=== PATIENT | female | born 1965 | race Caucasian/White ===

== ENCOUNTER → 2016-08-27 | Outpatient (REF) | payer BC | LOC: M SFHCWAGY 13:19 | PROVIDERS: ATTEND Nurse Practitioner Women's Health | DX: Z12.4 Encounter for screening for malignant neoplasm of cervix (principal) ==

== ENCOUNTER → 2016-08-27 | Outpatient (CLI) | payer BC ==
--- NOTE | 2016-08-27 15:30 | REPMRS ---
Patient History The patient states she had a clinical breast exam in 08/2016. Patient is postmenopausal. Family history of breast cancer in paternal cousin. Took estrogen for 1 month. Digital Woman Screen Mammo: August 27, 2016 - Exam #: [id number] Bilateral CC and MLO view(s) were taken. Technologist: Maricruz Williamson Technologist Prior study comparison: August 28, 2015, digital woman screen mammo performed at [facility]. August 24, 2014, digital woman screen mammo performed at [facility]. August 23, 2013, digital woman screen mammo performed at [facility]. FINDINGS: The breast tissue is almost entirely fat. There has been no change in the appearance of the mammogram from the prior studies. There is no interval development of dominant mass, architectural distortion, or clustered microcalcification typical of malignancy. ASSESSMENT: BI-RADS/ACR category 1 mammogram. Negative. Recommendation Routine screening mammogram of both breasts in 1 year (for women over age 40). This mammogram was interpreted with the aid of an FDA-approved computer-aided dectection system. Electronically Signed By: Daniel Humphrey MD 08/27/16 [id number]
== END ==
LOC: M WHC 12:40
PROVIDERS: ATTEND Nurse Practitioner Women's Health
DX: Z12.31 Encounter for screening mammogram for malignant neoplasm of breast (principal)

== ENCOUNTER → 2016-09-27 | Outpatient (REF) | payer BC | LOC: M LAB REF 10:27 | PROVIDERS: ATTEND Physician Assistant | DX: N39.0 Urinary tract infection, site not specified (principal) ==

== ENCOUNTER → 2016-10-10 | Outpatient (CLI) | payer BC ==
--- NOTE | 2016-10-10 14:29 | REP ---
PELVIC ULTRASOUND: Real-time sonographic evaluation of the pelvis performed utilizing transabdominal and endovaginal technique. Comparison 12/25/2011. Bladder measures 9.1 x 9.1 x 8.6 cm. Uterus measures 9.3 x 2.7 x 6.3 cm. Endometrial thickness is 6 mm. There is no endometrial fluid collection. The ovaries are normal in size and echotexture, right ovary measuring 1.6 x 1.0 x 1.5 cm and left ovary 1.6 x 1.3 x 1.9 cm. There is no adnexal mass or free fluid. Blood flow is seen in the ovaries with duplex Doppler evaluation, with no torsion. Small nabothian cyst is seen in the region of the cervix. IMPRESSION: Essentially negative pelvic ultrasound.
== END ==
LOC: M WHC 10:12
PROVIDERS: ATTEND Nurse Practitioner Women's Health
DX: R10.2 Pelvic and perineal pain (principal)

== ENCOUNTER → 2017-07-17 | Outpatient (REF) | payer BC ==
[2017-07-17 19:47] LABS: APPEARANCE, URINE CLEAR (CLEAR); BACTERIA, URINE AUTO NEGATIVE (NEGATIVE); BILIRUBIN, URINE AUTO NEGATIVE (NEGATIVE); BLOOD, URINE BLOOD NEGATIVE (NEGATIVE); COLOR, URINE STRAW (YELLOW); GLUCOSE, URINE (UA) AUTO NEGATIVE (NEGATIVE); KETONE, URINE AUTO NEGATIVE (NEGATIVE); LEUKOCYTE ESTERASE, URINE AUTO NEGATIVE (NEGATIVE); NITRITE, URINE AUTO NEGATIVE (NEGATIVE); PROTEIN, URINE AUTO NEGATIVE (NEGATIVE); RBC, URINE AUTO 0 /HPF (0-3); SQUAMOUS EPITHELIAL CELL UR AU 0 /HPF (0-6); UROBILINOGEN, URINE AUTO 0.2 mg/dL (0.0-2.0); WBC, URINE AUTO 0 /HPF (0-3)
== END ==
LOC: M SFHCWAGY 16:08
DX: B37.3 Candidiasis of vulva and vagina (principal)
CPT/HCPCS: 81001

== ENCOUNTER → 2017-08-27 | Outpatient (CLI) | payer BC | LOC: M WHC 12:46 | DX: Z12.31 Encounter for screening mammogram for malignant neoplasm of breast (principal) | CPT/HCPCS: 77067 ==

== ENCOUNTER → 2017-08-27 | Outpatient (REF) | payer BC | LOC: M SFHCWAGY 13:20 | DX: Z12.4 Encounter for screening for malignant neoplasm of cervix (principal); Z12.31 Encounter for screening mammogram for malignant neoplasm of breast ==

== ENCOUNTER → 2018-01-12 | Outpatient (CLI) | payer BC | LOC: M SLEEP HO 13:59 | DX: G47.33 Obstructive sleep apnea (adult) (pediatric) (principal) | CPT/HCPCS: G0399 ==

== ENCOUNTER 2018-02-16 18:35 | Emergency (ER) | payer BC ==
[2018-02-16] MEDS: KETOROLAC 60 MG/2 ML VIAL (J1885) IM (19:09)
[2018-02-16] MEDS: CYCLOBENZAPRINE 10 MG TAB PO (19:09)
== END 2018-02-16 19:50 | disposition home or self-care (01) ==
LOC: M ED 18:35
DX: M54.9 Dorsalgia, unspecified (principal); M62.830 Muscle spasm of back; I10 Essential (primary) hypertension; M19.90 Unspecified osteoarthritis, unspecified site; M51.9 Unspecified thoracic, thoracolumbar and lumbosacral intervertebral disc disorder; Z79.899 Other long term (current) drug therapy
CPT/HCPCS: J1885

== ENCOUNTER 2018-05-05 08:21 | Day surgery (SDC) | payer BC ==
[~2018-05-05 08:21] MED LIST: LIDOCAINE 2% INJ 100 MG/5 ML SDV (FOR ANES.) As Ordered; PROPOFOL 200 MG/20 ML VIAL As Ordered
[2018-05-05] MEDS: NS 1,000 ML IV ×2 (08:31→08:32)
== END 2018-05-05 09:46 | disposition home or self-care (01) ==
LOC: M OPP 08:21
DX: Z12.11 Encounter for screening for malignant neoplasm of colon (principal); K64.1 Second degree hemorrhoids; K57.30 Diverticulosis of large intestine without perforation or abscess without bleeding; I10 Essential (primary) hypertension; M12.9 Arthropathy, unspecified; Z79.899 Other long term (current) drug therapy; Z90.49 Acquired absence of other specified parts of digestive tract
CPT/HCPCS: 45378

== ENCOUNTER → 2018-08-03 | Outpatient (CLI) | payer BC ==
[~2018-08-03] MED LIST changes: +CYCL5TAB PO; +ESTR62CR PV; +HYDR30SU PR; +KETO10TAB PO; +LIDO1PAD TOP; -LIDOCAINE 2% INJ 100 MG/5 ML SDV (FOR ANES.) As Ordered; +LISINOPRIL-HCTZ; +LISINOPRIL-HCTZ PO; +METO50TA7 PO; -PROPOFOL 200 MG/20 ML VIAL As Ordered; +VITA100066 PO; +VITA500T53 PO
--- NOTE | 2018-08-06 18:58 | SLEEPCENT ---
DATE OF PROCEDURE: 08/03/2018 ORDERED BY: JAVIER Nettles Diagnostic nocturnal polysomnography was performed for the titration of pressure therapy in this patient with a clinical diagnosis of obstructive sleep apnea syndrome confirmed by home testing revealing a respiratory event index of 14.7. For testing, the patient was fit with a ResMed AirFit F10 large mask, 4 cm of water pressure were applied to the circuit and the lights were extinguished. 6 hours and 49 minutes of data were reviewed. There were 253 minutes of sleep identified. Sleep latency was somewhat prolonged at 35 minutes as was rapid eye movement (REM) latency at 165 minutes. Sleep architecture improved on optimal pressure therapy, and there were two REM cycles noted. Overall sleep efficiency was 62.5%. The patient's electrocardiogram showed a sinus rhythm with an average heart rate of 56 beats per minute. EEG showed fairly normal waveforms for awake and sleep, no focal events being identified. Respiratory events were fully palliated with continuous positive airway pressure (CPAP) at a pressure +7. There was some persistent activity in the limb leads. Limb movement arousals were only 2.8 times per hour. IMPRESSION: Obstructive sleep apnea syndrome (G47.33) RECOMMENDATIONS: Nightly use of pressure therapy 7 cm of water. MTDD
== END ==
LOC: M SLEEP 19:38
PROVIDERS: ATTEND Physician Assistant
DX: G47.33 Obstructive sleep apnea (adult) (pediatric) (principal)

== ENCOUNTER → 2018-08-27 | Outpatient (CLI) | payer BC ==
--- NOTE | 2018-08-27 14:18 | REPMRS ---
Patient History The patient states she had a clinical breast exam in 09/14 Patient is postmenopausal. No known family history of cancer. Taking estrogen for 2 years 1 month. Digital Woman Screen Mammo: August 27, 2018 - Exam #: [id number] Bilateral CC and MLO view(s) were taken. Technologist: Amee Jose, Technologist Prior study comparison: August 27, 2017, digital woman screen mammo performed at [facility]. August 27, 2016, digital woman screen mammo performed at [facility]. August 28, 2015, digital woman screen mammo performed at [facility]. FINDINGS: The breast tissue is almost entirely fat. There has been no change in the appearance of the mammogram from the prior studies. There is no interval development of dominant mass, architectural distortion, or clustered microcalcification typical of malignancy. 3-D tomosynthesis shows no additional findings. Assessment: BI-RADS/ACR category 1 mammogram. Negative Mammogram. Recommendation Routine screening mammogram of both breasts in 1 year (for women over age 40). This patient's Lifetime Breast Cancer RIsk is estimated at 9.8 %. This mammogram was interpreted with the aid of an FDA-approved computer-aided dectection system. Electronically Signed By: Daniel Humphrey MD 08/27/18 [id number]
== END ==
LOC: M WHC 13:05
PROVIDERS: ATTEND Nurse Practitioner Women's Health
DX: Z12.31 Encounter for screening mammogram for malignant neoplasm of breast (principal); Z78.0 Asymptomatic menopausal state; Z79.818 Long term (current) use of other agents affecting estrogen receptors and estrogen levels

== ENCOUNTER → 2019-09-02 | Outpatient (CLI) | payer BC ==
[~2019-09-02] MED LIST changes: +VITA500T17 PO; -VITA500T53 PO
--- NOTE | 2019-09-02 15:31 | REPMRS ---
Patient History The patient states she had a clinical breast exam in August 2019. No known family history of cancer. Taking estrogen for 2 years 1 month. Digital Woman Screen Mammo: September 02, 2019 - Exam #: [id number] Bilateral CC and MLO view(s) were taken. Technologist: Leni Lee, Technologist Prior study comparison: August 27, 2018, bilateral digital woman screen mammo performed at [facility]. August 27, 2017, digital woman screen mammo performed at [facility]. August 27, 2016, digital woman screen mammo performed at [facility]. FINDINGS: There are scattered fibroglandular densities. There has been no change in the appearance of the mammogram from the prior studies. There is a mild amount of scattered fibroglandular density which is fairly symmetric. There is no interval development of dominant mass, architectural distortion, or grouped microcalcification suggestive of malignancy. 3-D tomosynthesis shows no additional findings. Assessment: BI-RADS/ACR category 1 mammogram. Negative Mammogram. Recommendation Routine screening mammogram of both breasts in 1 year (for women over age 40). This patient's Lifetime Breast Cancer Risk is estimated at 9.6 %. This mammogram was interpreted with the aid of an FDA-approved computer-aided dectection system. Electronically Signed By: Daniel Humphrey MD 09/02/19 [id number]
== END ==
LOC: M WHC 12:59
PROVIDERS: ATTEND Nurse Practitioner Women's Health
DX: Z12.31 Encounter for screening mammogram for malignant neoplasm of breast (principal); Z12.4 Encounter for screening for malignant neoplasm of cervix
CPT/HCPCS: 77063; 77067; G0123

== ENCOUNTER → 2019-09-05 | Outpatient (REF) | payer BC | LOC: M LAB REF 17:03 | PROVIDERS: ATTEND Nurse Practitioner | DX: L08.9 Local infection of the skin and subcutaneous tissue, unspecified (principal) ==

== ENCOUNTER → 2020-06-05 | Outpatient (CLI) | payer SELFPAY | LOC: M LABSMTC 15:35 | PROVIDERS: ATTEND Pediatrics | DX: Z11.59 Encounter for screening for other viral diseases (principal) ==

== ENCOUNTER → 2020-06-24 | Outpatient (CLI) | payer SELFPAY | LOC: M LABSMTC 11:24 | PROVIDERS: ATTEND Pediatrics | DX: Z20.828 Contact with and (suspected) exposure to other viral communicable diseases (principal) ==

== ENCOUNTER → 2020-07-09 | Outpatient (REF) | payer BC | LOC: M LAB REF 17:26 | PROVIDERS: ATTEND Family Medicine | DX: J01.90 Acute sinusitis, unspecified (principal) ==

== ENCOUNTER → 2020-09-04 | Outpatient (CLI) | payer BC ==
--- NOTE | 2020-09-04 15:07 | REPMRS ---
Patient History The patient states she had a clinical breast exam in August 2020. No known family history of cancer. Taking estrogen for 2 years 1 month. 3D TOMOSYNTHESIS WAS PERFORMED. [facility] for [facility] cancer is 9.4%. Volpara breast density b. Digital Woman Screen Mammo: September 04, 2020 - Exam #: [id number] Bilateral CC and MLO view(s) were taken. Technologist: Ysabel Velasco, Technologist Prior study comparison: September 02, 2019, bilateral digital woman screen mammo performed at [facility]. August 27, 2018, bilateral digital woman screen mammo performed at [facility]. FINDINGS: There are scattered fibroglandular densities. There has been no change in the appearance of the mammogram from the prior studies. There is a mild amount of residual fibroglandular tissue which is fairly symmetric. There is no interval development of dominant mass, architectural distortion, or clustered microcalcification suggestive of malignancy. Assessment: BI-RADS/ACR category 1 mammogram. Negative Mammogram. Recommendation Routine screening mammogram in 1 year (for women over age 40). This mammogram was interpreted with the aid of an FDA-approved computer-aided dectection system. Electronically Signed By: Tyler Gonzalez MD 09/04/20 [id number]
== END ==
LOC: M WHC 13:18
PROVIDERS: ATTEND Nurse Practitioner Women's Health
DX: Z12.31 Encounter for screening mammogram for malignant neoplasm of breast (principal); Z79.890 Hormone replacement therapy; R92.2 Inconclusive mammogram

== ENCOUNTER → 2020-09-04 | Outpatient (REF) | payer BC | LOC: M SFHCWAGY 18:45 | PROVIDERS: ATTEND Nurse Practitioner Women's Health | DX: Z12.4 Encounter for screening for malignant neoplasm of cervix (principal) | CPT/HCPCS: 87624; G0123 ==

== ENCOUNTER → 2021-04-11 | Outpatient (REF) | payer BC | LOC: M SFHCWAGY 10:13 | PROVIDERS: ATTEND Nurse Practitioner Women's Health | DX: R30.0 Dysuria (principal) ==

== ENCOUNTER → 2021-06-26 | Outpatient (REF) | payer BC | LOC: M LAB REF 18:49 | PROVIDERS: ATTEND Physician Assistant | DX: J01.90 Acute sinusitis, unspecified (principal) ==

== ENCOUNTER → 2021-08-09 | Outpatient (REF) | payer BC | LOC: M LAB REF 14:23 | PROVIDERS: ATTEND Family Medicine | DX: R30.0 Dysuria (principal) ==

== ENCOUNTER → 2021-09-05 | Outpatient (CLI) | payer BC | LOC: M WHC 13:27 | PROVIDERS: ATTEND Obstetrics & Gynecology | DX: Z12.31 Encounter for screening mammogram for malignant neoplasm of breast (principal) ==

== ENCOUNTER → 2022-01-31 | Outpatient (REF) | payer BC ==
[2022-01-31 16:22] LABS: APPEARANCE, URINE HAZY (CLEAR); BACTERIA, URINE AUTO 1+ (NEGATIVE); BILIRUBIN, URINE AUTO NEGATIVE (NEGATIVE); BLOOD, URINE BLOOD 2+ (NEGATIVE); COLOR, URINE STRAW (YELLOW); GLUCOSE, URINE (UA) AUTO NEGATIVE (NEGATIVE); KETONE, URINE AUTO NEGATIVE (NEGATIVE); LEUKOCYTE ESTERASE, URINE AUTO 3+ (NEGATIVE); MUCUS, URINE SMALL (NEGATIVE); NITRITE, URINE AUTO NEGATIVE (NEGATIVE); PROTEIN, URINE AUTO NEGATIVE (NEGATIVE); RBC, URINE AUTO 2 /HPF (0-3); SPECIFIC GRAVITY URINE AUTO 1.006 (1.002-1.035); SQUAMOUS EPITHELIAL CELL UR AU 0 /HPF (0-6); UROBILINOGEN, URINE AUTO 0.2 mg/dL (0.0-2.0); WBC, URINE AUTO 47 /HPF (0-3)
== END ==
LOC: M LAB REF 15:34
PROVIDERS: ATTEND Nurse Practitioner Adult Health
DX: R30.0 Dysuria (principal)

== ENCOUNTER → 2022-04-25 | Outpatient (REF) | payer BC | LOC: M PLALAB 16:08 | PROVIDERS: ATTEND Advanced Practice Midwife | DX: R10.2 Pelvic and perineal pain (principal); N94.9 Unspecified condition associated with female genital organs and menstrual cycle ==

== ENCOUNTER → 2022-07-02 | Outpatient (REF) | payer BC | LOC: M PLALAB 10:57 | PROVIDERS: ATTEND Advanced Practice Midwife | DX: N90.89 Other specified noninflammatory disorders of vulva and perineum (principal); N94.9 Unspecified condition associated with female genital organs and menstrual cycle ==

== ENCOUNTER → 2022-07-25 | Outpatient (CLI) | payer BC | LOC: M WHC 11:06 | PROVIDERS: ATTEND Physician Assistant | DX: Z13.820 Encounter for screening for osteoporosis (principal) ==

== ENCOUNTER → 2022-09-10 | Outpatient (CLI) | payer BC | LOC: M WHC 08:38 | PROVIDERS: ATTEND Advanced Practice Midwife | DX: Z12.31 Encounter for screening mammogram for malignant neoplasm of breast (principal) ==

== ENCOUNTER → 2022-10-09 | Outpatient (CLI) | payer BC | LOC: M SOG 09:00 | PROVIDERS: ATTEND Physician Assistant | DX: M19.042 Primary osteoarthritis, left hand (principal) ==

== ENCOUNTER 2022-12-18 20:55 | Emergency (ER) | payer BC, OTHER ==
[~2022-12-18] VITALS: Ht 167.6 cm; Wt 103.6 kg
[2022-12-18 20:56] VITALS: BP 143/70; TEMP 97.7; O2SAT 97
== END 2022-12-19 00:49 | disposition home or self-care (01) ==
LOC: M ED 20:55
DX: S83.92XA Sprain of unspecified site of left knee, initial encounter (principal); I10 Essential (primary) hypertension; M54.50 Low back pain, unspecified; F10.10 Alcohol abuse, uncomplicated; Z79.811 Long term (current) use of aromatase inhibitors; Z79.899 Other long term (current) drug therapy

== ENCOUNTER → 2023-03-18 | Outpatient (REF) | payer BC, OTHER | LOC: M LAB REF 17:04 | PROVIDERS: ATTEND Nurse Practitioner Adult Health | DX: J02.9 Acute pharyngitis, unspecified (principal) ==

== ENCOUNTER → 2023-05-25 | Outpatient (CLI) | payer BC, OTHER | LOC: M RAD 07:17 | PROVIDERS: ATTEND Family Medicine | DX: M54.16 Radiculopathy, lumbar region (principal); M47.816 Spondylosis without myelopathy or radiculopathy, lumbar region ==

== ENCOUNTER → 2023-09-16 | Outpatient (CLI) | payer BC, OTHER | LOC: M WHC 09:18 | PROVIDERS: ATTEND Advanced Practice Midwife | DX: Z12.31 Encounter for screening mammogram for malignant neoplasm of breast (principal) ==

== ENCOUNTER → 2023-09-28 | Outpatient (REF) | payer OTHER, BC | LOC: M LAB REF 16:53 | PROVIDERS: ATTEND Family Medicine | DX: J02.9 Acute pharyngitis, unspecified (principal) ==

== ENCOUNTER → 2024-09-22 | Outpatient (REF) | payer BC, OTHER ==
[~2024-09-22] MED LIST changes: -CYCL5TAB PO; +CYCL5TAB4 PO
[2024-09-24 15:33] LABS: HPV APTIMA Not Detected (Not Detected)
== END ==
LOC: M PLALAB 08:41
PROVIDERS: ATTEND Advanced Practice Midwife
DX: Z12.4 Encounter for screening for malignant neoplasm of cervix (principal)
CPT/HCPCS: 87624; G0123

== ENCOUNTER → 2024-09-22 | Outpatient (CLI) | payer BC, OTHER | LOC: M WHC 08:07 | PROVIDERS: ATTEND Advanced Practice Midwife | DX: Z12.31 Encounter for screening mammogram for malignant neoplasm of breast (principal); Z13.820 Encounter for screening for osteoporosis ==

== ENCOUNTER → 2025-05-11 | Outpatient (REF) | payer BC, OTHER ==
[~2025-05-11] MED LIST changes: -VITA500T17 PO; +VITA500T8 PO
== END ==
LOC: M LAB REF 17:36
PROVIDERS: ATTEND Physician Assistant
DX: J35.8 Other chronic diseases of tonsils and adenoids (principal); Z20.89 Contact with and (suspected) exposure to other communicable diseases